=== PATIENT | female | born 1970 | race African-American/Black ===

== ENCOUNTER 2022-08-22 15:28 | Emergency (ER) | payer SELFPAY ==
[2022-08-22 15:54] LABS: Urine Blood Negative (Negative); Urine Glucose Negative (Negative); Urine Protein Negative (Negative); Urine Specific Gravity <=1.005 (1.005-1.030); Urine pH 6.5 (5.0-7.0)
[2022-08-22] MEDS ORDERED: KETOROLAC 30 MG/ML INJ ONE (16:05)
[2022-08-22] MEDS ORDERED: NA CHLORIDE 0.9% 1,000 ML ONE (16:05)
[2022-08-22] MEDS ORDERED: ONDANSETRON 4 MG/2 ML VIAL ONE (16:05)
[2022-08-22 16:26] LABS: Urine Bacteria <20 /HPF (<20); Urine RBC None Seen /HPF (None Seen)
[2022-08-22 16:30] LABS: Albumin 3.2 g/dL (3.4-5.0); Bilirubin Total 0.5 mg/dL (0.2-1.0); Potassium 3.4 mmol/L (3.5-5.1); Protein, Total 7.7 g/dL (6.4-8.2)
[2022-08-22 16:40] LABS: Lymphocytes % 25.6 % (15.3-44.8); MCV 89.3 fL (80-100); MPV 7.7 fL (7.6-11.3); RBC Red Blood Cell Count 3.81 M/uL (3.86-4.86)
--- NOTE | 2022-08-22 17:02 | RAD REPORT ---
EXAM DESCRIPTION: CTAbdomen Pelvis W Contrast - 08/22/2022 4:53 pm CLINICAL HISTORY: Abdominal pain. ABD PAIN COMPARISON: No comparisons TECHNIQUE: Biphasic CT imaging of the abdomen and pelvis was performed with 100 ml non-ionic IV cont rast. All CT scans are performed using dose optimization technique as appropriate and may include automated exposure control or mA/KV adjustment according to patient size. FINDINGS: The lung bases are clear. There are numerous small subtle low-density lesions noted diffusely throughout the liver. Cholecystec tavo. The spleen, pancreas, adrenal glands and kidneys are within normal limits. No bowel obstruction, free air, free fluid or abscess. There is 5-6 cm length of the sigmoid colon le ft lower quadrant which shows wall thickening and mild surrounding inflammation. The appendix is norm al. No evidence of significant lymphadenopathy. No suspicious bony findings. IMPRESSION: 5-6 cm length of sigmoid colon in the left lower quadrant demonstrates several diverticu la, wall thickening and pericolonic inflammation. Diverticulitis is a possibility, however inflammato ry mass can have a similar appearance. Followup colonoscopy would be advised. Numerous small low-density hepatic lesions difficult to fully assess. Small benign lesions with possi ble, however metastatic disease is also possible. Recommend MRI liver protocol with contrast for foll owup assessment. This may be performed non-emergently.
--- NOTE | 2022-08-22 17:09 | EDPHYS ---
Physician Documentation [facility] Name: Gilma Vaughn Age: 52 yrs Sex: Female : 1970 Arrival Date: 08/22/2022 Time: 15:30 Bed 10 Private MD: ED Physician Howard Flynn HPI: 08/22 16:00 This 52 yrs old Female presents to ER via Ambulatory with complaints of Abdominal Pain. kb 16:00 The patient presents with abdominal pain in the lower abdomen. Onset: The kb symptoms/episode began/occurred 4 day(s) ago. The symptoms do not radiate. Associated signs and symptoms: Pertinent positives: nausea, Pertinent negatives: fever, vomiting. The symptoms are described as constant. Modifying factors: The symptoms are alleviated by nothing, the symptoms are aggravated by pressure. Severity of pain: At its worst the pain was moderate in the emergency department the pain is unchanged. The patient has not experienced similar symptoms in the past. The patient has not recently seen a physician. Patient is a 52-year-old female with a history of hypertension that presents for lower abdominal pain that started 4 days ago. States she thought it could be related to constipation so she took laxatives that resulted in bowel movements but pain persisted. Reports nausea today no vomiting denies fever. Denies any urinary symptoms.. 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 - Social history:: Smoking status: Patient denies any tobacco usage or history of. Patient/guardian denies using alcohol. ROS: 16:01 Constitutional: Negative for fever, chills, and weight loss. kb 16:01 Abdomen/GI: Positive for abdominal pain, nausea. 16:01 All other systems are negative. Exam: 16:01 Constitutional: This is a well developed, well nourished patient who is awake, alert, kb and in no acute distress. Head/Face: Normocephalic, atraumatic. ENT: Moist Mucous membranes Cardiovascular: Regular rate and rhythm with a normal S1 and S2. No gallops, murmurs, or rubs. No pulse deficits. Respiratory: Respirations even and unlabored. No increased work of breathing. Talking in full sentences Skin: Warm, dry with normal turgor. Normal color. MS/ Extremity: Pulses equal, no cyanosis. Neurovascular intact. Full, normal range of motion. Neuro: Awake and alert, GCS 15, oriented to person, place, time, and situation. Moves all extremities. Normal gait. Psych: Awake, alert, with orientation to person, place and time. Behavior, mood, and affect are within normal limits. 16:01 Abdomen/GI: Inspection: abdomen appears normal, Bowel sounds: normal, Palpation: soft, in all quadrants, mild abdominal tenderness, in the left upper quadrant and right lower quadrant, moderate abdominal tenderness, in the left lower quadrant. Vital Signs: 15:38 BP 147 / 96; Pulse 71; Resp 18; Temp 97.9(O); Pulse Ox 100% on R/A; Weight 69.85 kg; ld1 Height 5 ft. 4 in. (162.56 cm); Pain 8/10; 16:19 BP 163 / 93; Pulse 67; Resp 15; Pulse Ox 100% ; Pain 8/10; jl7 15:38 Body Mass Index 26.43 (69.85 kg, 162.56 cm) ld1 MDM: 15:39 Patient medically screened. kb 16:02 Differential diagnosis: diverticulitis, gastritis, non-specific abd pain, urinary tract kb infection, ovarian cyst. Data reviewed: vital signs, nurses notes. 17:07 Counseling: I had a detailed discussion with the patient and/or guardian regarding: the kb historical points, exam findings, and any diagnostic results supporting the discharge/admit diagnosis, lab results, radiology results, the need for outpatient follow up, a family practitioner, a aircraft mechanic electrical and radio, to return to the emergency department if symptoms worsen or persist or if there are any questions or concerns that arise at home. ED course: Diagnostic results discussed with pt including need for follow up with GI for colonoscopy and liver MRI. Printed copy of results given to pt. All questions answered. Will prescribe antibiotics for possible diverticulitis and pt will call GI tomorrow to schedule follow up appt. . 08/22 15:39 Order name: CBC with Diff; Complete Time: 16:48 kb 08/22 15:39 Order name: CMP; Complete Time: 16:32 kb 08/22 15:39 Order name: Lipase; Complete Time: 16:32 kb 08/22 15:39 Order name: Urine Microscopic Only; Complete Time: 16:32 kb 08/22 15:39 Order name: CT Abd/Pelvis - IV Contrast Only; Complete Time: 17:03 kb 08/22 15:54 Order name: Urine Dipstick-Ancillary; Complete Time: 16:00 EDMS 08/22 15:39 Order name: IV Saline Lock; Complete Time: 16:07 kb 08/22 15:39 Order name: Labs collected and sent; Complete Time: 16:08 kb 08/22 15:39 Order name: Urine Dipstick-Ancillary (obtain specimen); Complete Time: 16:08 kb Administered Medications: 16:21 Drug: NS 0.9% 1000 ml Route: IV; Rate: 1 bolus; Site: left antecubital; jl7 18:21 Follow up: Response: No adverse reaction; IV Status: Completed infusion jl7 16:21 Drug: TORadol - (ketorolac) 15 mg Route: IVP; Site: left antecubital; jl7 17:00 Follow up: Response: No adverse reaction; Pain is decreased jl7 16:21 Drug: Zofran (Ondansetron) 4 mg Route: IVP; Site: left antecubital; jl7 18:21 Follow up: Response: No adverse reaction jl7 Disposition Summary: 08/22/22 17:09 Discharge Ordered Location: Home kb Condition: Stable kb Diagnosis - Diverticulitis of intestine, part unspecified, without perforation or abscess kb without bleeding Followup: kb - With: Emergency Department - When: As needed - Reason: Worsening of condition Followup: kb - With: Private Physician - When: 2 - 3 days - Reason: Recheck today's complaints, Continuance of care, Re-evaluation by your physician Discharge Instructions: - Discharge Summary Sheet kb - Diverticulitis, [id number] kb Forms: - Medication Reconciliation Form kb - Thank You Letter kb - Antibiotic Education kb - Prescription Opioid Use kb Prescriptions: - Flagyl 500 mg Oral Tablet - take 1 tablet by ORAL route every 8 hours for 10 days; 30 tablet; Refills: 0, kb Product Selection Permitted - Zofran 4 mg Oral Tablet - take 1 tablet by ORAL route every 6 hours As needed; 20 tablet; Refills: 0, kb Product Selection Permitted - Cipro 500 mg Oral Tablet - take 1 tablet by ORAL route every 12 hours for 10 days; 20 tablet; Refills: 0, kb Product Selection Permitted - Diclofenac Sodium 75 mg Oral tablet,delayed release (DR/EC) - take 1 tablet by ORAL route 2 times per day As needed; 30 tablet; Refills: 0, kb Product Selection Permitted Signatures: Dispatcher [employer] EDIra Carranza, NICOLEC Yanique Myles, RN RN jl7 Sofiya Casillas RN RN ld1
--- NOTE | 2022-08-22 17:09 | ER ---
Nurse's Notes [facility] Name: Gilma Vaughn Age: 52 yrs Sex: Female : 1970 Arrival Date: 08/22/2022 Time: 15:30 Bed 10 Private MD: Diagnosis: Diverticulitis of intestine, part unspecified, without perforation or abscess without bleeding Presentation: 08/22 15:36 Chief complaint: Patient states: ABD pain X 2-3 days. Nausea. Coronavirus screen: At ld1 this time, the client does not indicate any symptoms associated with coronavirus-19. Ebola Screen: No symptoms or risks identified at this time. Risk Assessment: Do you want to hurt yourself or someone else? Patient reports no desire to harm self or others. Onset of symptoms was August 22, 2022. 15:36 Method Of Arrival: Ambulatory ld1 15:36 Acuity: HOWARD 3 ld1 16:00 Initial Sepsis Screen: Does the patient meet any 2 criteria? No. Patient's initial jl7 sepsis screen is negative. Does the patient have a suspected source of infection? No. Patient's initial sepsis screen is negative. Triage Assessment: 15:38 General: Appears in no apparent distress. comfortable, Behavior is calm, cooperative, ld1 appropriate for age. Pain: Complains of pain in abdomen Pain does not radiate. Pain currently is 8 out of 10 on a pain scale. Quality of pain is described as throbbing, Pain began 2-3 days ago. Is continuous. EENT: No signs and/or symptoms were reported regarding the EENT system. Neuro: Level of Consciousness is awake, alert, obeys commands, Oriented to person, place, time, situation. Cardiovascular: Capillary refill < 3 seconds Patient's skin is warm and dry. Respiratory: Airway is patent Respiratory effort is even, unlabored. GI: Abdomen is round non-distended, Reports lower abdominal pain, nausea. : No signs and/or symptoms were reported regarding the genitourinary system. Derm: No signs and/or symptoms reported regarding the dermatologic system. Musculoskeletal: No signs and/or symptoms reported regarding the musculoskeletal system. 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 - Social history:: Smoking status: Patient denies any tobacco usage or history of. Patient/guardian denies using alcohol. Screenin:19 [facility] ED Fall Risk Assessment (Adult) History of falling in the last 3 months, jl7 including since admission No falls in past 3 months (0 pts) Confusion or Disorientation No (0 pts) Intoxicated or Sedated No (0 pts) Impaired Gait No (0 pts) Mobility Assist Device Used No (0 pt) Altered Elimination No (0 pt) Score/Fall Risk Level 0 - 2 = Low Risk Oriented to surroundings, Maintained a safe environment. Abuse screen: Denies threats or abuse. Denies injuries from another. Nutritional screening: No deficits noted. Tuberculosis screening: No symptoms or risk factors identified. Assessment: 16:19 General: Appears in no apparent distress. uncomfortable, Behavior is calm, cooperative, jl7 appropriate for age. Pain: Complains of pain in left lower quadrant Pain currently is 8 out of 10 on a pain scale. Neuro: Level of Consciousness is awake, alert, obeys commands, Oriented to person, place, time, situation. Cardiovascular: Patient's skin is warm and dry. Respiratory: Airway is patent Respiratory effort is even, unlabored, Respiratory pattern is regular, symmetrical. GI: Reports nausea. Derm: Skin is pink, warm \T\ dry. 17:30 Reassessment: Patient appears in no apparent distress at this time. Patient and/or jl7 family updated on plan of care and expected duration. Pain level reassessed. Patient is alert, oriented x 3, equal unlabored respirations, skin warm/dry/pink. Patient states feeling better. Vital Signs: 15:38 BP 147 / 96; Pulse 71; Resp 18; Temp 97.9(O); Pulse Ox 100% on R/A; Weight 69.85 kg; ld1 Height 5 ft. 4 in. (162.56 cm); Pain 8/10; 16:19 BP 163 / 93; Pulse 67; Resp 15; Pulse Ox 100% ; Pain 8/10; jl7 15:38 Body Mass Index 26.43 (69.85 kg, 162.56 cm) ld1 ED Course: 15:30 Patient arrived in ED. as 15:34 [facility]ear[facility]-C [facility] kb 15:34 Howard Flynn MD is Attending Physician. kb 15:37 Triage completed. ld1 15:38 Arm band placed on right wrist. ld1 15:54 Urine collected: clean catch specimen, clear. jl7 15:59 Yanique Ybarra, RN is Primary Nurse. jl7 16:08 Urine Microscopic Only Sent. kj1 16:19 Patient has correct armband on for positive identification. jl7 16:19 Initial lab(s) drawn, by ED staff, sent to lab. Inserted saline lock: 20 gauge in left jl7 antecubital area, using aseptic technique. Blood collected. 16:55 CT Abd/Pelvis - IV Contrast Only In Process Unspecified. EDMS 18:23 No provider procedures requiring assistance completed. IV discontinued, intact, jl7 bleeding controlled, No redness/swelling at site. Pressure dressing applied. Administered Medications: 16:21 Drug: NS 0.9% 1000 ml Route: IV; Rate: 1 bolus; Site: left antecubital; jl7 18:21 Follow up: Response: No adverse reaction; IV Status: Completed infusion jl7 16:21 Drug: TORadol - (ketorolac) 15 mg Route: IVP; Site: left antecubital; jl7 17:00 Follow up: Response: No adverse reaction; Pain is decreased jl7 16:21 Drug: Zofran (Ondansetron) 4 mg Route: IVP; Site: left antecubital; jl7 18:21 Follow up: Response: No adverse reaction jl7 Medication: 16:19 VIS not applicable for this client. jl7 Outcome: 17:09 Discharge ordered by . kb 17:30 Discharged to home ambulatory. jl7 17:30 Condition: stable 17:30 Discharge instructions given to patient, Instructed on discharge instructions, follow up and referral plans. medication usage, Demonstrated understanding of instructions, follow-up care, medications, Prescriptions given X 4. 18:24 Patient left the ED. jl7 Signatures: Dispatcher [employer] Ira Henry, OPEN END SPINNING OPERATOR-C OPEN END SPINNING OPERATOR-Gila Briscoe Jahala, RN RN jl7 Karen Kearns1 Sofiya Casillas, RN RN ld1
[2022-08-22 19:32] VITALS: TEMP 97.9; O2SAT 100
[2022-08-22 19:33] VITALS: BP 163/93
== END 2022-08-22 18:24 | disposition home or self-care (01) ==
LOC: ER 15:28
DX: K57.32 Diverticulitis of large intestine without perforation or abscess without bleeding (principal); I10 Essential (primary) hypertension; Z98.82 Breast implant status
CPT/HCPCS: 36415; 74177; 80053; 81003; 81015; 83690; 85025; J2405; J7030; Q9967

== ENCOUNTER 2023-06-05 22:58 | Emergency (ER) | payer SELFPAY ==
[2023-06-05] MEDS ORDERED: ONDANSETRON 4 MG/2 ML VIAL ONE (23:39)
[2023-06-05] MEDS ORDERED: NA CHLORIDE 0.9% 1,000 ML ONE (23:39)
[2023-06-05 23:43] LABS: Absolute Lymphocytes (CBC) 2.1 K/uL (0.7-4.9); Hematocrit 34.1 % (36.0-45.0); Lymphocytes % 36.3 % (15.3-44.8); MCV 88.4 fL (80-100); MPV 8.2 fL (7.6-11.3); Platelets 224 thou/uL (152-406); RBC Red Blood Cell Count 3.85 M/uL (3.86-4.86)
[2023-06-05 23:52] LABS: ALT/SGPT 44 U/L (13-56); AST/SGOT 55 U/L (15-37); Albumin 2.9 g/dL (3.4-5.0); Alkaline Phosphatase 220 U/L (45-117); BUN Blood Urea Nitrogen 4 mg/dL (7-18); Bicarbonate 30 mEq/L (21-32); Bilirubin Direct < 0.1 mg/dL (0-0.2); Bilirubin Indirect, Calculated ND mg/dL (0.2-0.8); Bilirubin Total 0.4 mg/dL (0.2-1.0); Glomerular Filtration Rate 83 ml/min (=/>90); Glucose Level 125 mg/dL (74-106); NT PRO-BNP 245 pg/mL (<125); Potassium 3.2 mEq/L (3.5-5.1); Protein, Total 7.4 g/dL (6.4-8.2); Sodium Level 139 mEq/L (136-145); Troponin High Sensitivity 13.3 pg/mL (<58.9)
--- NOTE | 2023-06-06 01:13 | ER ---
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 Took 2 tizanidine for her back pain and now feels lethargic and is concerned for possible accidental overdose EMS states: Pt took 8mg of her spouses tizanidine for back pain at 2030. States she was sleep within 5 minutes of taking the medication and that her could not wake her for 30 minutes. PMH htn only. Coronavirus screen: Vaccine status: Patient reports being unvaccinated. Ebola Screen: No symptoms or risks identified at this time. Initial Sepsis Screen: Does the patient have a suspected source of infection? No. Patient's initial sepsis screen is negative. Risk Assessment: Do you want to hurt yourself or someone else? Patient reports no desire to harm self or others. Onset of symptoms was June 05, 2023 at 20:30. 23:03 Method Of Arrival: EMS: [facility] la4 23:03 Acuity: HOWARD 3 la4 06/06 02:06 Initial Sepsis Screen: Does the patient meet any 2 criteria? No. Patient's initial nw1 sepsis screen is negative. Triage Assessment: 06/05 23:07 General: Appears in no apparent distress. Behavior is cooperative, appropriate for age, la4 drowsy. Pain: Denies pain. Neuro: No deficits noted. 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 Speech is normal. Cardiovascular: No deficits noted. Heart tones S1 S2 Capillary refill < 3 seconds is brisk Pulses are all present. Edema is absent. Rhythm is regular. Respiratory: No deficits noted. Airway is patent Respiratory effort is even, unlabored, Respiratory pattern is regular, symmetrical, Breath sounds are clear bilaterally. GI: No deficits noted. No signs and/or symptoms were reported involving the gastrointestinal system. : No deficits noted. No signs and/or symptoms were reported regarding the genitourinary system. Derm: No deficits noted. No signs and/or symptoms reported regarding the dermatologic system. Musculoskeletal: No deficits noted. No signs and/or symptoms reported regarding the musculoskeletal system. Circulation, motion, and sensation intact. Capillary refill < 3 seconds, is brisk, Range of motion: intact in all extremities. 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 - Social history:: Smoking status: Patient/guardian denies using tobacco products. - Family history:: not pertinent. Screenin:11 [facility] ED Fall Risk Assessment (Adult) History of falling in the last 3 months, la4 including since admission No falls in past 3 months (0 pts) Confusion or Disorientation No (0 pts) Intoxicated or Sedated Yes (3 pts) Impaired Gait No (0 pts) Mobility Assist Device Used No (0 pt) Altered Elimination No (0 pt) Score/Fall Risk Level 3 or more points = High Risk. Abuse screen: Denies threats or abuse. Denies injuries from another. Nutritional screening: No deficits noted. Tuberculosis screening: No symptoms or risk factors identified. Assessment: 23:11 Reassessment: Patient appears in no apparent distress at this time. Patient and/or la4 family updated on plan of care and expected duration. Pain level reassessed. Patient is alert, oriented x 3, equal unlabored respirations, skin warm/dry/pink. Patient states symptoms have not improved. General: Appears in no apparent distress. Behavior is calm, cooperative, appropriate for age. 06/06 01:20 Reassessment: Pt discharged but just received medication. Will wait 15 min to ensure no nw1 allergic reaction and then will discharge. Vital Signs: 06/05 23:03 BP 139 / 97; Pulse 61; Resp 16; Pulse Ox 100% on R/A; Weight 70.31 kg; Height 5 ft. 4 la4 in. ; Pain 0/10; 23:03 Body Mass Index 26.61 (70.31 kg, 162.56 cm) la4 23:03 Pain Scale: Adult la4 ED Course: 23:03 Patient arrived in ED. la4 23:06 Morales Samaniego MD is Attending Physician. sp4 23:07 Triage completed. la4 23:07 Arm band placed on right wrist. Patient placed in an exam room, on a stretcher, on la4 hospital monitor, on pulse oximetry. 23:11 Gilma Gerber, RN is Primary Nurse. nw1 23:11 Patient has correct armband on for positive identification. Placed in gown. Bed in low la4 position. Call light in reach. Side rails up X2. Provided Education on: plan of care. 23:11 Client placed on continuous cardiac and pulse oximetry monitoring. NIBP monitoring la4 applied. 23:11 No provider procedures requiring assistance completed. Inserted saline lock: 20 gauge la4 in right wrist, using aseptic technique. 06/06 02:06 IV discontinued, intact, bleeding controlled, No redness/swelling at site. Pressure nw1 dressing applied. Administered Medications: 06/05 23:30 Drug: NS 0.9% IV 1000 ml IV at 125 ml/hr continuous Route: IV; Rate: 125 ml/hr; Site: nw1 right wrist; 23:30 Drug: Ondansetron IVP 4 mg IVP once; over 2 minutes Route: IVP; Site: right wrist; nw1 06/06 01:20 Drug: Promethazine PO 25 mg PO once Route: PO; nw1 Medication: 06/05 23:19 VIS not applicable for this client. nw1 Outcome: 06/06 01:13 Discharge ordered by . sp4 02:05 Discharged to home ambulatory, with family, nw1 02:05 Condition: stable 02:05 Discharge instructions given to patient, Instructed on discharge instructions, medication usage, Demonstrated understanding of instructions, medications, Prescriptions given X 1, 02:06 Patient left the ED. nw1 Signatures: Morales Samaniego MD MD spJulio Durand RN RN la4 Gilma Gerber, LUISA RN nw1
--- NOTE | 2023-06-06 01:13 | EDPHYS ---
Physician Documentation [facility] Name: Gilma Vaughn Age: 53 yrs Sex: Female : 1970 Arrival Date: 06/05/2023 Time: 22:58 Bed 17 Private MD: ED Physician Morales Samaniego HPI: 06/05 23:06 This 53 yrs old Black Female presents to ER via Unassigned with complaints of Overdose sp4 of Zanaflex . 23:06 53-year-old female presents with complaint that she took 2 tablets of tizanidine 4 mg sp4 each at 8:30 PM for back pain. Patient's states he had difficult time waking outpatient and so he has called EMS for patient to be brought to the emergency room for evaluation. Patient denied any suicidal attempt . 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 - Social history:: Smoking status: Patient/guardian denies using tobacco products. - Family history:: not pertinent. ROS: 23:55 Constitutional: Negative for fever, chills, and weight loss, positive for somnolence sp4 23:55 All other systems are negative, Exam: 23:55 Constitutional: This is a well developed, well nourished patient who is awake, alert, sp4 and in no acute distress. Head/Face: Normocephalic, atraumatic. Eyes: Pupils equal round and reactive to light, extra-ocular motions intact. Lids and lashes normal. Conjunctiva and sclera are not injected. Cornea within normal limits. Periorbital areas with no swelling, redness, or edema. ENT: Nares patent. No nasal discharge, no septal abnormalities noted. Tympanic membranes are normal and external auditory canals are clear. Oropharynx with no redness, swelling, or masses, exudates, or evidence of obstruction, uvula midline. Mucous membranes moist. Neck: Trachea midline, no thyromegaly or masses palpated, and no cervical lymphadenopathy. Supple, full range of motion without nuchal rigidity, or vertebral point tenderness. Chest/axilla: Normal chest wall appearance and motion. Nontender with no deformity. No lesions are appreciated. Cardiovascular: Regular rate and rhythm with a normal S1 and S2. No gallops, murmurs, or rubs. Normal PMI, no JVD. No pulse deficits. Respiratory: Lungs have equal breath sounds bilaterally, clear to auscultation and percussion. No rales, rhonchi or wheezes noted. No increased work of breathing, no retractions or nasal flaring. Abdomen/GI: Soft, non-tender, with normal bowel sounds. No distension or tympany. No guarding or rebound. No evidence of tenderness throughout. Back: No spinal tenderness. No costovertebral tenderness. Skin: Warm, dry with normal turgor. Normal color with no rashes, no lesions, and no evidence of cellulitis. MS/ Extremity: Pulses equal, no cyanosis. Neurovascular intact. Full, normal range of motion. Neuro: Awake and alert, GCS 15, oriented to person, place, time, and situation. Cranial nerves II-XII grossly intact. Motor strength 5/5 in all extremities. Sensory grossly intact. Psych: Awake, alert, with orientation to person, place and time. Behavior, mood, and affect are within normal limits Vital Signs: 23:03 BP 139 / 97; Pulse 61; Resp 16; Pulse Ox 100% on R/A; Weight 70.31 kg; Height 5 ft. 4 la4 in. ; Pain 0/10; 23:03 Body Mass Index 26.61 (70.31 kg, 162.56 cm) la4 23:03 Pain Scale: Adult la4 MDM: 23:08 Patient medically screened. sp4 06/06 01:11 Differential Diagnosis altered mental status, sepsis, flu. Data reviewed: vital signs, sp4 nurses notes. Data reviewed: lab test result(s), CBC, electrolytes, hepatic panel. Consideration of Admission/Observation Escalation of care including admission/observation considered. ED course: Patient is feeling much better after observation labs did not raise any concern, patient will be prescribed Robaxin as needed as needed back pain. ED course: Stable for discharge home at this time. 06/05 23:08 Order name: Basic Metabolic Panel; Complete Time: 01:07 sp4 06/05 23:08 Order name: CBC with Diff; Complete Time: 01:07 sp4 06/05 23:08 Order name: LFT's; Complete Time: 01:07 sp4 06/05 23:08 Order name: NT PRO-BNP; Complete Time: 01:07 sp4 06/05 23:08 Order name: Troponin HS; Complete Time: 01:07 sp4 06/05 23:08 Order name: EKG; Complete Time: 23:08 sp4 06/05 23:08 Order name: Cardiac monitoring; Complete Time: 23:14 sp4 06/05 23:08 Order name: EKG - Nurse/Tech; Complete Time: 23:14 sp4 06/05 23:08 Order name: IV Saline Lock; Complete Time: 23:14 sp4 06/05 23:08 Order name: Labs collected and sent; Complete Time: 23:14 sp4 06/05 23:08 Order name: O2 Per Protocol; Complete Time: 23:14 sp4 06/05 23:08 Order name: O2 Sat Monitoring; Complete Time: 23:14 sp4 Administered Medications: 06/05 23:30 Drug: NS 0.9% IV 1000 ml IV at 125 ml/hr continuous Route: IV; Rate: 125 ml/hr; Site: nw right wrist; 23:30 Drug: Ondansetron IVP 4 mg IVP once; over 2 minutes Route: IVP; Site: right wrist; nw1 06/06 01:20 Drug: Promethazine PO 25 mg PO once Route: PO; [facility] Disposition Summary: 06/06/23 01:13 Discharge Ordered Notes: Location: Home sp4 Problem: new sp4 Symptoms: have improved sp4 Condition: Stable sp4 Diagnosis - Low back pain sp4 - Accidental overdose on Zanaflex /tizanidine sp4 Followup: sp4 - With: Private Physician - When: 7 - 10 days - Reason: Recheck today's complaints Discharge Instructions: - Discharge Summary Sheet sp4 - Acute Back Pain, Adult sp4 Forms: - Patient Portal Instructions sp4 Prescriptions: - methocarbamol 750 mg Oral tablet - take 1 tablet ORAL route every 6 hours PRN back pain; 30 tablet; Refills: 0, sp4 Product Selection Permitted Signatures: Dispatcher [employer] Morales Cruz MD MD sp4 Julio Whyte RN RN la4 Gilma Gerber RN RN nw1
[2023-06-06] MEDS ORDERED: PROMETHAZINE 25 MG TABLET ONE (01:26)
[2023-06-06 02:12] VITALS: BP 139/97; O2SAT 100
== END 2023-06-06 02:06 | disposition home or self-care (01) ==
LOC: ER 22:58
DX: M54.50 Low back pain, unspecified (principal); T42.8X1A Poisoning by antiparkinsonism drugs and other central muscle-tone depressants, accidental (unintentional), initial encounter; R40.0 Somnolence
CPT/HCPCS: 36415; 80048; 80076; 83880; 84484; 85025; 96374; 99284; J2405; J7030; Q0169

== ENCOUNTER → 2023-09-02 | Emergency (ER) | payer SELFPAY ==
[~2023-09-02] MED LIST: NA CHLORIDE 0.9% 1,000 ML ONE; POTASSIUM CL SA 10 MEQ TAB PO ONE
--- OUTSIDE RECORDS SUMMARY | 2023-09-02 15:17 | XMS REPORT | Clinical Summary ---
Author Name Unknown Organization [facility] Address [address] [place] [address] Care Team Providers Care Oil Dispatcher Name Role Phone Radha Jj MD Unavailable [phone] Radha Jj MD Unavailable [phone] Manisha Yang MD Unavailable Shirley Kearns NP Unavailable [phone] Dev Coates MD Unavailable Judson Patton MD Unavailable [phone] Nik Peck MD Unavailable Allergies No known active allergies Medications Medication Sig Dispensed Refills Start Date End Date Status amLODIPine (NORVASC) 5 mg tablet Take 5 mg by mouth daily. 0 Active losartan-hydrochlor othiazide (HYZAAR) 100-25 mg per tablet Take by mouth daily. 0 Active pregabalin (Lyrica) 50 mg capsuleIndications: Other inflammatory polyneuropathy,Neur osarcoidosis Start at 1 cap three times a day x 2 days and increase to 2 caps three times a day if still having nerve pain. 180 capsule 5 08/23/2020 Active Additional Information Patient taking differently: 50 mg Daily, Start at 1 cap three times a day x 2 days and increase to 2 caps three times a day if still having nerve pain., Reason: Per patient request, Reported on 10/22/2020 UNABLE TO FINDIndications:gail n Take 600 mg by mouth 3 (three) times a day. Med Name: Naflon 0 Active predniSONE (DELTASONE) 10 mg tabletIndications:N eurosarcoidosis Take 6 tabs daily x 1 week, then 5 tabs daily x 1 week, then 4 tabs daily x 1 wk, then 3 tabs daily for 1 wk, then 2 tabs daily x 1 week, then 1 tab daily x 1 week, then stop 147 tablet 0 09/21/2020 Active Additional Information Patient taking differently: 30 mg Daily, Take 6 tabs daily x 1 week, then 5 tabs daily x 1 week, then 4 tabs daily x 1 wk, then 3 tabs daily for 1 wk, then 2 tabs daily x 1 week, then 1 tab daily x 1 week, then stop, Reason: Per patient request (tapering dose), Reported on 10/22/2020 Active Problems Problem Noted Date Diagnosed Date Entrapment of right ulnar nerve 08/05/2020 Lumbosacral radiculopathy 06/30/2020 Inflammatory polyneuropathy 06/30/2020 Lumbago 03/25/2016 Muscular wasting and disuse atrophy, 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 Hypertension Surgical History Surgery Date Site/Laterality Comments HYSTERECTOMY GALLBLADDER SURGERY GASTRIC BYPASS Medical History Medical History Date Comments Hypertension Social History Tobacco Use Types Packs/Day Years Used Date Smoking Tobacco: Never Smokeless Tobacco: Never Tobacco Cessation:Counseling Given: No Alcohol Use Standard Drinks/Week Comments Not Asked 3 (1 standard drink = 0.6 oz pur e alcohol) Sex and Gender Information Value Date Recorded Sex 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 Gender Identity Female 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 Sexual Orientation Not on file Job Start Date Occupation Industry Not on file Not on file Not on file Obstetrics History Plan of Treatment Health Maintenance Due Date Last Done Comments COVID-19 Vaccination ( season) 2023 05/14/2021, 04/16/2021 Advance Directives Latest Code Status on File Code Status Date Activated Date Inactivated Comments Full Code 06/30/2020 7:14 PM 07/04/2020 5:51 PM Care Teams Oil Dispatcher Relationship Specialty Start Date End Date Radha Jj MD PCP - External Referring Obstetrics/Gynecology 12/11/17 Radha Jj MD PCP - External Follow Up A Obstetrics/Gynecology 12/11/17 Manisha Yang MD [address] [place] [address] [address] [place] [address] PCP - External Follow Up B Plastic and Reconstructive Surgery 12/30/18 Shirley Kearns NP [address] [place] [address] PCP - External Follow Up C Nurse Practitioner 05/27/21 Dev Coates MD [facility] [place] [address] Consulting Physician Rheumatology 09/14/20 Judson Patton MD [facility] [place] [address] Physician Neurosurgery 03/06/16 Nik Peck MD [address] [place] [address] Consulting Physician Pain Management 03/21/16
[2023-09-02 16:19] LABS: Absolute Lymphocytes (CBC) 1.7 K/uL (0.7-4.9); Hematocrit 35.4 % (36.0-45.0); Lymphocytes % 19.3 % (15.3-44.8); MCV 87.7 fL (80-100); MPV 7.9 fL (7.6-11.3); Platelets 250 thou/uL (152-406); RBC Red Blood Cell Count 4.04 M/uL (3.86-4.86)
[2023-09-02 16:33] LABS: Bilirubin Total 0.7 mg/dL (0.2-1.0); Potassium 3.2 mEq/L (3.5-5.1); Protein, Total 8.3 g/dL (6.4-8.2)
--- NOTE | 2023-09-02 17:22 | EDPHYS ---
Physician Documentation [facility] Name: Gilma Vaughn Age: 53 yrs Sex: Female : 1970 Arrival Date: 09/02/2023 Time: 15:15 Bed 10 Private MD: ED Physician Collins Mckee HPI: 09/02 15:42 This 53 yrs old Black Female presents to ER via Ambulatory with complaints of Headache, kb Body cramps. 15:42 Patient is a 53-year-old female who presents for headache, muscle cramps and dry mouth kb for 2 weeks. States she feels really dehydrated so she came in to get her blood work checked and get some fluids. Denies nausea, vomiting, diarrhea, urinary symptoms.. 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 - Social history:: Smoking status: Patient denies any tobacco usage or history of. ROS: 15:38 Constitutional: Negative for fever, chills, and weight loss, kb 15:38 MS/extremity: Positive for muscle cramps, 15:38 Neuro: Positive for headache, 15:38 All other systems are negative, Exam: 15:38 Constitutional: This is a well developed, well nourished patient who is awake, alert, kb and in no acute distress. Head/Face: Normocephalic, atraumatic. ENT: Moist Mucous membranes Cardiovascular: Regular rate Respiratory: Respirations even and unlabored. No increased work of breathing. Talking in full sentences Skin: Warm, dry with normal turgor. Normal color. MS/ Extremity: Pulses equal, no cyanosis. Neurovascular intact. Full, normal range of motion. Neuro: Awake and alert, GCS 15, oriented to person, place, time, and situation. Moves all extremities. Normal gait. Vital Signs: 15:21 BP 134 / 90; Pulse 88; Resp 16; Temp 97.3; Pulse Ox 100% on R/A; ko1 17:34 BP 127 / 85; Pulse 78; Resp 16; Pulse Ox 100% ; bp [place] Coma Score: 15:38 Eye Response: spontaneous(4). Motor Response: obeys commands(6). Verbal Response: kb oriented(5). Total: 15. MDM: 15:21 Patient medically screened. kb 15:38 Data reviewed: vital signs, nurses notes. kb 15:43 Differential Diagnosis Dehydration, abnormal electrolytes. kb 17:19 Counseling: I had a detailed discussion with the patient and/or guardian regarding the kb historical points, exam findings, and any diagnostic results supporting the discharge/admit diagnosis, lab results, the need for outpatient follow up, a family practitioner, to return to the emergency department if symptoms worsen or persist or if there are any questions or concerns that arise at home. 09/02 15:28 Order name: CBC with Diff; Complete Time: 16:38 kb 09/02 15:28 Order name: CMP; Complete Time: 16:37 kb 09/02 15:28 Order name: IV Start; Complete Time: 16:08 kb Administered Medications: 16:00 Drug: NS 0.9% IV 1000 ml IV at 1000 ml once Route: IV; Rate: 1000 ml; Site: left bp antecubital; 17:36 Follow up: IV Status: Completed infusion; IV Intake: 1000ml bp 16:45 Drug: Potassium Chloride PO 40 mEq PO once Route: PO; bp 17:36 Follow up: Response: No adverse reaction bp Disposition: 18:33 Co-signature as Attending Physician, Collins Mckee MD I reviewed the patient's care rt provided by the Advanced Practice Provider and agree with the diagnosis and treatment plan. Disposition Summary: 09/02/23 17:22 Discharge Ordered Notes: Location: Home kb Condition: Stable kb Diagnosis - Headache kb - Cramp and spasm kb - Hypokalemia kb Followup: kb - With: Emergency Department - When: As needed - Reason: Worsening of condition Followup: kb - With: Private Physician - When: 2 - 3 days - Reason: Recheck today's complaints, Continuance of care, Re-evaluation by your physician Discharge Instructions: - Discharge Summary Sheet kb - Muscle Cramps and Spasms, [id number] kb - General Headache Without Cause, [id number] kb Forms: - Medication Reconciliation Form kb - Thank You Letter kb - Antibiotic Education kb - Prescription Opioid Use kb - Patient Portal Instructions kb - Leadership Thank You Letter kb Signatures: Dispatcher [employer] Ira Henry FNP-C FNP-Jason Hidalgo, RN RN bp Umm Bradley RN RN ko1 Collins Mckee MD MD rt
--- NOTE | 2023-09-02 17:22 | ER ---
Nurse's Notes [facility] Name: Gilma Vaughn Age: 53 yrs Sex: Female : 1970 Arrival Date: 09/02/2023 Time: 15:15 Bed 10 Private MD: Diagnosis: Headache;Cramp and spasm;Hypokalemia Presentation: 09/02 15:21 Chief complaint: Patient states: head pressure, feet cramping and turning in, lips are ko1 very dry. Going on for about 2 weeks. Coronavirus screen: At this time, the client does not indicate any symptoms associated with coronavirus-19. Ebola Screen: No symptoms or risks identified at this time. Initial Sepsis Screen: Does the patient meet any 2 criteria? No. Patient's initial sepsis screen is negative. Does the patient have a suspected source of infection? No. Patient's initial sepsis screen is negative. Risk Assessment: Do you want to hurt yourself or someone else? Patient reports no desire to harm self or others. Onset of symptoms is unknown. 15:21 Method Of Arrival: Ambulatory ko1 15:21 Acuity: HOWARD 4 ko1 Triage Assessment: 15:26 Headache History: Denies prior headaches. General: Appears in no apparent distress. ko1 Behavior is calm, cooperative, appropriate for age. Pain: Pain currently is 3 out of 10 on a pain scale. Pain began gradually, Also complains of no other associated symptoms. Neuro: No deficits noted. 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 - Social history:: Smoking status: Patient denies any tobacco usage or history of. Screenin:34 [facility] ED Fall Risk Assessment (Adult) History of falling in the last 3 months, bp including since admission No falls in past 3 months (0 pts). Abuse screen: Denies threats or abuse. Denies injuries from another. Nutritional screening: No deficits noted. Tuberculosis screening: No symptoms or risk factors identified. Assessment: 15:30 General: SEE TRIAGE NOTE. bp 17:34 Reassessment: PT DC HOME AMBULATORY. bp Vital Signs: 15:21 BP 134 / 90; Pulse 88; Resp 16; Temp 97.3; Pulse Ox 100% on R/A; ko1 17:34 BP 127 / 85; Pulse 78; Resp 16; Pulse Ox 100% ; bp [place] Coma Score: 15:38 Eye Response: spontaneous(4). Motor Response: obeys commands(6). Verbal Response: kb oriented(5). Total: 15. ED Course: 15:19 Patient arrived in ED. im 15:20 [facility]C [facility] kb 15:20 Collins Mckee MD is Attending Physician. kb 15:26 Triage completed. ko1 15:26 Arm band placed on right wrist. Patient placed in waiting room, Patient notified of ko1 wait time. 15:55 Jason Casey, RN is Primary Nurse. bp 16:08 Inserted saline lock: 22 gauge in left antecubital area, using aseptic technique. Blood ds4 collected. Missed attempt(s): 22 gauge in left antecubital area. Bleeding controlled, band aid applied, catheter tip intact. 17:34 Patient has correct armband on for positive identification. bp 17:34 No provider procedures requiring assistance completed. IV discontinued, intact, bp bleeding controlled, No redness/swelling at site. Pressure dressing applied. Administered Medications: 16:00 Drug: NS 0.9% IV 1000 ml IV at 1000 ml once Route: IV; Rate: 1000 ml; Site: left bp antecubital; 17:36 Follow up: IV Status: Completed infusion; IV Intake: 1000ml bp 16:45 Drug: Potassium Chloride PO 40 mEq PO once Route: PO; bp 17:36 Follow up: Response: No adverse reaction bp Medication: 17:34 VIS not applicable for this client. bp Intake: 17:36 IV: 1000ml; Total: 1000ml. bp Outcome: 17:22 Discharge ordered by . kb 17:34 Discharged to home ambulatory, bp 17:34 Condition: stable 17:34 Discharge instructions given to patient, Instructed on discharge instructions, follow up and referral plans. Demonstrated understanding of instructions, follow-up care, 18:02 Patient left the ED. bp Signatures: Ira Kearns, GASATERIA ATTENDANT-C GASATERIA ATTENDANT-Ckb Jean Claude Galvin ds4 Jason Casey, RN RN bp Umm Bradley, LUISA RN ko1 Maribel Maciel
[2023-09-02 18:26] VITALS: BP 127/85; TEMP 97.3; O2SAT 100
== END ==
LOC: ER 15:15
DX: R51.9 Headache, unspecified (principal); R25.2 Cramp and spasm; E87.6 Hypokalemia
CPT/HCPCS: 36415; 80053; 85025; J7030

== ENCOUNTER → 2023-09-04 | Emergency (ER) | payer SELFPAY ==
[~2023-09-04] MED LIST changes: +DOXYCYCLINE 100 MG CAP PO ONE; +HYDROCODONE/APAP 5/325 MG TAB ONE; -NA CHLORIDE 0.9% 1,000 ML ONE; -POTASSIUM CL SA 10 MEQ TAB PO ONE
--- OUTSIDE RECORDS SUMMARY | 2023-09-04 07:42 | XMS REPORT | Clinical Summary ---
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 Sexual Orientation Not on file Job Start Date Occupation Industry Not on file Not on file Not on file Obstetrics History Plan of Treatment Health Maintenance Due Date Last Done Comments COVID-19 Vaccination ( season) 2023 05/14/2021, 04/16/2021 Advance Directives Latest Code Status on File Code Status Date Activated Date Inactivated Comments Full Code 06/30/2020 7:14 PM 07/04/2020 5:51 PM Care Teams Field Producer Relationship Specialty Start Date End Date Radha Jj MD PCP - External Referring Obstetrics/Gynecology 12/11/17 Radha Jj MD PCP - External Follow Up A Obstetrics/Gynecology 12/11/17 Manisha Yang MD [address] [place] [address] [address] [place] [address] PCP - External Follow Up B Plastic and Reconstructive Surgery 12/30/18 Shirley Kearns NP [address] [place] [address] PCP - External Follow Up C Nurse Practitioner 05/27/21 Dev Coates MD [facility] [place] [address] Consulting Physician Rheumatology 09/14/20 Judson Patton MD [facility] [place] [address] Physician Neurosurgery 03/06/16 Nik Peck MD [address] [place] [address] Consulting Physician Pain Management 03/21/16
[2023-09-04 09:21] LABS: Urine Bacteria None Seen /HPF (<20); Urine Bilirubin NEGATIVE (Negative); Urine Blood 3+ (Negative); Urine Clarity Turbid (Clear); Urine Color Light-Yellow (Yellow); Urine Glucose NEGATIVE (Negative); Urine Mucus Slight /HPF (None Seen); Urine Protein NEGATIVE (Negative); Urine RBC <5 /HPF (None Seen); Urine Urobilinogen 1+ (Normal); Urine pH 7.5 (5.0-7.0)
--- NOTE | 2023-09-04 09:50 | ER ---
Nurse's Notes [facility] Name: Gilma Vaughn Age: 53 yrs Sex: Female : 1970 Arrival Date: 09/04/2023 Time: 07:40 Bed 7 Private MD: Diagnosis: Labial Cellulitis Presentation: 09/04 07:52 Chief complaint: Patient states: Vaginal swelling X 2 days, denies pain. C/O soreness ld1 and bleeding. Coronavirus screen: Client presents with at least one sign or symptom that may indicate coronavirus-19. Ebola Screen: No symptoms or risks identified at this time. Initial Sepsis Screen: Does the patient meet any 2 criteria? No. Patient's initial sepsis screen is negative. Does the patient have a suspected source of infection? No. Patient's initial sepsis screen is negative. Risk Assessment: Do you want to hurt yourself or someone else? Patient reports no desire to harm self or others. Onset of symptoms was September 04, 2023. 07:52 Method Of Arrival: Ambulatory ld1 07:52 Acuity: HOWARD 4 ld1 Triage Assessment: 07:52 General: Appears in no apparent distress. comfortable, Behavior is calm, cooperative, ld1 appropriate for age. Pain: Denies pain. EENT: No signs and/or symptoms were reported regarding the EENT system. Neuro: Level of Consciousness is awake, alert, obeys commands, Oriented to person, place, time, situation. Cardiovascular: Capillary refill < 3 seconds Patient's skin is warm and dry. Respiratory: Airway is patent Respiratory effort is even, unlabored. GI: Abdomen is flat, non-distended. : Reports vaginal bleeding that is moderate flow, Denies vaginal bleeding. Derm: No signs and/or symptoms reported regarding the dermatologic system. Musculoskeletal: No signs and/or symptoms reported regarding the musculoskeletal system. Historical: - PMHx: 07:48 Hypertensive disorder; ll1 - PSHx: 07:48 breast augmentation; Cholecystectomy; Total abdominal hysterectomy; Tummy tuck; ll1 - Immunization history:: Adult Immunizations up to date. - Social history:: Smoking status: Patient denies any tobacco usage or history of. Patient/guardian denies using alcohol. Screenin:53 [facility] ED Fall Risk Assessment (Adult) History of falling in the last 3 months, ld1 including since admission No falls in past 3 months (0 pts). Abuse screen: Denies threats or abuse. Denies injuries from another. Nutritional screening: No deficits noted. Tuberculosis screening: No symptoms or risk factors identified. Assessment: 07:54 Reassessment: See triage assessment. ld1 09:15 General: Appears in no apparent distress. comfortable, Behavior is calm, cooperative, ld1 appropriate for age. Pain: Denies pain. Neuro: Level of Consciousness is awake, alert, obeys commands, Oriented to person, place, time, situation. Cardiovascular: Capillary refill < 3 seconds Patient's skin is warm and dry. Rhythm is sinus rhythm. Respiratory: Airway is patent Respiratory effort is even, unlabored. GI: Abdomen is flat, non-distended. : Reports vaginal bleeding that is. Vital Signs: 07:52 BP 143 / 107; Pulse 91; Resp 18; Temp 98.1(TE); Pulse Ox 100% on R/A; Weight 70.31 kg; ld1 Height 5 ft. 4 in. ; Pain 0/10; 09:15 BP 138 / 90; Pulse 86; Resp 18; Pulse Ox 100% on R/A; ld1 07:52 Body Mass Index 26.61 (70.31 kg, 162.56 cm) ld1 07:52 Pain Scale: Adult ld1 ED Course: 07:42 Patient arrived in ED. rg4 07:45 Willian Simons DO is Attending Physician. ms3 07:48 Arm band placed on Patient placed in an exam room, on a stretcher. ll1 07:53 Triage completed. ld1 07:54 Patient has correct armband on for positive identification. Placed in gown. Bed in low ld1 position. Call light in reach. Side rails up X2. monitor tech on. Pulse ox on. NIBP on. Door closed. Noise minimized. Warm blanket given. 07:54 No provider procedures requiring assistance completed. ld1 08:49 Sofiya Simons RN is Primary Nurse. ld1 09:48 Bobbi Funk MD is Referral Physician. ms3 10:09 Patient did not have IV access during this emergency room visit. ph Administered Medications: 08:52 Drug: HYDROcodone-acetaminophen PO 5 mg-325 mg 1 tabs PO once Route: PO; ld1 10:03 Follow up: Response: No adverse reaction ph 10:03 Drug: Doxycycline PO 100 mg PO once Route: PO; ph 10:03 Follow up: Response: No adverse reaction; Medication administered at discharge. ph Medication: 07:54 VIS not applicable for this client. ld1 Outcome: 09:49 Discharge ordered by . ms3 10:03 Discharged to home ambulatory, ph 10:03 Condition: good 10:03 Discharge instructions given to patient, Instructed on discharge instructions, follow up and referral plans. medication usage, Demonstrated understanding of instructions, follow-up care, medications, Prescriptions given X 1, 10:09 Patient left the ED. ph Signatures: Anamika Borrego, RN RN ph Ally Echeverria rg4 Gregorio Carter RN RN ll1 Willian Simons DO DO ms3 Sofiya Simons RN RN ld1
--- NOTE | 2023-09-04 09:50 | EDPHYS ---
Physician Documentation [facility] Name: Gilma Vaughn Age: 53 yrs Sex: Female : 1970 Arrival Date: 09/04/2023 Time: 07:40 Bed 7 Private MD: ED Physician Willian Simons HPI: 09/04 08:08 This 53 yrs old Black Female presents to ER via Ambulatory with complaints of Vaginal ms3 Bleeding, Vaginal Swelling. 08:08 53-year-old female with past medical history of hypertension presents to the emergency ms3 department for labia swelling and vaginal bleeding that began 2 hours prior to arrival. Patient states her discomfort is a 2/10. Patient denies any alleviating or inciting factors. Historical: - PMHx: 07:48 Hypertensive disorder; ll1 - PSHx: 07:48 breast augmentation; Cholecystectomy; Total abdominal hysterectomy; Tummy tuck; ll1 - Immunization history:: Adult Immunizations up to date. - Social history:: Smoking status: Patient denies any tobacco usage or history of. Patient/guardian denies using alcohol. ROS: 08:08 Constitutional: Negative for fever, and chills. ENT: Negative for injury, pain, and ms3 discharge, Neck: Negative for injury, pain, and swelling, Cardiovascular: Negative for chest pain, and palpitations. 08:08 Skin: Negative for injury, rash, and discoloration, 08:08 : Positive for vaginal bleeding, Exam: 08:08 Constitutional: This is a well developed, well nourished patient who is awake, alert, ms3 and in no acute distress. Head/Face: Normocephalic, atraumatic. Neck: Trachea midline, no cervical lymphadenopathy. Supple, full range of motion without nuchal rigidity, or vertebral point tenderness. No Meningismus. Chest/axilla: Normal chest wall appearance and motion. Nontender with no deformity. Cardiovascular: Regular rate and rhythm with a normal S1 and S2. No gallops, murmurs, or rubs. Normal PMI, no JVD. No pulse deficits. Respiratory: Lungs have equal breath sounds bilaterally, clear to auscultation and percussion. No rales, rhonchi or wheezes noted. No increased work of breathing, no retractions or nasal flaring. Abdomen/GI: Soft, non-tender, with normal bowel sounds. No distension or tympany. No guarding or rebound. No evidence of tenderness throughout. Skin: Warm, dry with normal turgor. Normal color with no rashes, no lesions, and no evidence of cellulitis. MS/ Extremity: Pulses equal, no cyanosis. Neurovascular intact. Full, normal range of motion. 09:50 : Pelvic Exam: External exam: Left labia enlarged and tender to palpation. No ms3 induration or fluctuance, Vital Signs: 07:52 BP 143 / 107; Pulse 91; Resp 18; Temp 98.1(TE); Pulse Ox 100% on R/A; Weight 70.31 kg; ld1 Height 5 ft. 4 in. ; Pain 0/10; 09:15 BP 138 / 90; Pulse 86; Resp 18; Pulse Ox 100% on R/A; ld1 07:52 Body Mass Index 26.61 (70.31 kg, 162.56 cm) ld1 07:52 Pain Scale: Adult ld1 MDM: 08:08 Patient medically screened. ms3 08:08 Differential diagnosis: malignancy, postcoital bleeding. ms3 09:50 Data reviewed: vital signs, nurses notes, lab test result(s), and as a result, I will ms3 discharge patient. Counseling: I had a detailed discussion with the patient and/or guardian regarding the historical points, exam findings, and any diagnostic results supporting the discharge/admit diagnosis, lab results, the need for outpatient follow up, to return to the emergency department if symptoms worsen or persist or if there are any questions or concerns that arise at home. ED course: Discussed urinalysis results and physical exam with patient. Patient to follow-up with gynecology in 2 to 3 days. Patient understands agrees with plan. All questions were answered. Return precautions discussed include worsening symptoms, or any other concerns. Patient given prescription for doxycycline. On reevaluation patient is alert and orient x 4, no apparent distress, nontoxic-appearing, ambulatory emerged primary, speaking full sentences. 09/04 08:28 Order name: Urinalysis w/ reflexes; Complete Time: 09:45 ms3 09/04 09:39 Order name: Urine Culture EDMS Administered Medications: 08:52 Drug: HYDROcodone-acetaminophen PO 5 mg-325 mg 1 tabs PO once Route: PO; ld1 10:03 Follow up: Response: No adverse reaction ph 10:03 Drug: Doxycycline PO 100 mg PO once Route: PO; ph 10:03 Follow up: Response: No adverse reaction; Medication administered at discharge. ph Disposition Summary: 09/04/23 09:49 Discharge Ordered Notes: Location: Home ms3 Condition: Stable ms3 Diagnosis - Labial Cellulitis ms3 Followup: ms3 - With: Bobbi Funk MD - When: 2 - 3 days - Reason: Recheck today's complaints Discharge Instructions: - Discharge Summary Sheet ms3 - Cellulitis, Adult ms3 Forms: - Medication Reconciliation Form ms3 - Thank You Letter ms3 - Antibiotic Education ms3 - Prescription Opioid Use ms3 - Patient Portal Instructions ms3 - Leadership Thank You Letter ms3 Prescriptions: - Doxycycline Hyclate 100 mg Oral Tablet - take 1 tablet ORAL route every 12 hours; 20 tablet; Refills: 0, Product ms3 Selection Permitted Signatures: Dispatcher [employer] Anamika Varma RN RN ph Lewis, Lynsay, RN RN 1 Willian Simons DO DO ms3 Sofiya Simons RN RN ld1
[2023-09-04 10:24] VITALS: BP 138/90; TEMP 98.1; O2SAT 100
== END ==
LOC: ER 07:40
DX: N76.2 Acute vulvitis (principal)
CPT/HCPCS: 81001; 87086; 87088

== ENCOUNTER 2025-05-09 07:25 | Emergency (ER) | payer OTHER ==
--- NOTE | 2025-05-09 07:47 | ER ---
Nurse's Notes [facility] Name: Gilma Vaughn Age: 55 yrs Sex: Female : 1970 Arrival Date: 05/09/2025 Time: 07:25 Bed 6 Private MD: Diagnosis: Zoster without complications;Rash and other nonspecific skin eruption Presentation: 05/09 07:39 Chief complaint: Patient states: burning, itchy rash around R eye that began 2 days ss ago. Coronavirus screen: Client denies travel out of the [place] in the last 14 days. Ebola Screen: Patient denies exposure to infectious person. Patient denies travel to an Ebola-affected area in the 21 days before illness onset. Initial Sepsis Screen: Does the patient meet any 2 criteria? No. Patient's initial sepsis screen is negative. Does the patient have a suspected source of infection? No. Patient's initial sepsis screen is negative. Risk Assessment: Do you want to hurt yourself or someone else? Patient reports no desire to harm self or others. Onset of symptoms. 07:39 Method Of Arrival: Ambulatory ss 07:39 Acuity: HOWARD 4 ss Historical: - Allergies: 07:41 No Known Allergies; ss - PMHx: 07:41 Hypertensive disorder; ss - PSHx: 07:41 breast augmentation; Cholecystectomy; Total abdominal hysterectomy; Tummy tuck; ss - Immunization history:: Adult Immunizations unknown. - Infectious Disease History:: Denies. - Social history:: Smoking status: Patient denies any tobacco usage or history of. - Family history:: not pertinent. - Hospitalizations: : No recent hospitalization is reported. Screenin:35 [facility] ED Fall Risk Assessment (Adult) History of falling in the last 3 months, cc6 including since admission No falls in past 3 months (0 pts) Confusion or Disorientation No (0 pts) Intoxicated or Sedated No (0 pts) Impaired Gait No (0 pts) Mobility Assist Device Used No (0 pt) Altered Elimination No (0 pt) Score/Fall Risk Level 0 - 2 = Low Risk Oriented to surroundings, Maintained a safe environment, Provided non-skid footwear, Hourly rounding (assess needs \T\ fall precautionary measures) done. Abuse screen: Denies threats or abuse. Denies injuries from another. Nutritional screening: No deficits noted. Tuberculosis screening: No symptoms or risk factors identified. Assessment: 07:35 General: Appears in no apparent distress. comfortable, Behavior is calm, cooperative, cc6 appropriate for age. Pain: Complains of pain in right eye Pain does not radiate. Pain currently is 3 out of 10 on a pain scale. Quality of pain is described as burning. Neuro: Level of Consciousness is awake, alert, obeys commands, Oriented to person, place, time, situation. Cardiovascular: Capillary refill < 3 seconds Patient's skin is warm and dry. Respiratory: Airway is patent Respiratory effort is even, unlabored, Respiratory pattern is regular, symmetrical. GI: No signs and/or symptoms were reported involving the gastrointestinal system. : No signs and/or symptoms were reported regarding the genitourinary system. EENT: No signs and/or symptoms were reported regarding the EENT system. Derm: No signs and/or symptoms reported regarding the dermatologic system. Musculoskeletal: No signs and/or symptoms reported regarding the musculoskeletal system. Vital Signs: 07:39 BP 152 / 87; Pulse 74; Resp 16; Temp 97.9(O); Pulse Ox 100% on R/A; Weight 67.59 kg; ss Height 5 ft. 4 in. ; Pain 8/10; 07:39 Body Mass Index 25.58 (67.59 kg, 162.56 cm) ss 07:39 Pain Scale: Adult ss ED Course: 07:30 Patient arrived in ED. ts1 07:31 Patrick Rosenberg MD is Attending Physician. rn 07:41 Triage completed. ss 07:41 Arm band placed on right wrist. ss 07:43 Patient has correct armband on for positive identification. Bed in low position. Call cc6 light in reach. 07:43 Provided Education on: use of call light. cc6 07:56 Fidelina Abad RN is Primary Nurse. cc6 08:01 No provider procedures requiring assistance completed. Patient did not have IV access cc6 during this emergency room visit. Administered Medications: No medications were administered Medication: 08:01 VIS not applicable for this client. cc6 Outcome: 07:46 Discharge ordered by . rn 08:01 Discharged to home ambulatory, cc6 08:01 Condition: stable 08:01 Discharge instructions given to patient, Instructed on discharge instructions, follow up and referral plans. medication usage, Demonstrated understanding of instructions, follow-up care, medications, Prescriptions given X 4, 08:01 Patient left the ED. cc6 Signatures: Patrick Rosenberg MD MD rn Blanchard, Shelby, RN RN ss Simpson, Tanya, PAS PAS ts1 Fidelina Abad RN RN cc6 Corrections: (The following items were deleted from the chart) 07:59 07:35 General: Appears in no apparent distress. comfortable, Behavior is calm, cc6 cooperative, appropriate for age, cc6 07:59 07:35 Pain: Complains of pain in right eye Pain does not radiate. Pain currently is 3 cc6 out of 10 on a pain scale. Quality of pain is described as burning, cc6
--- NOTE | 2025-05-09 07:47 | EDPHYS ---
Physician Documentation [facility] Name: Gilma Vaughn Age: 55 yrs Sex: Female : 1970 Arrival Date: 05/09/2025 Time: 07:25 Bed 6 Private MD: ED Physician Patrick Rosenberg HPI: 05/09 07:41 This 55 yrs old Black Female presents to ER via Ambulatory with complaints of rash. rn 07:41 Patient reports right forehead/brow rash that began 2 days ago. Started with pain and rn irritation and then lesions popped up. Denies pain or discomfort of the eyeball itself, only the right brow. No trauma. No blurred vision or watery eye. No headache.. Historical: - Allergies: 07:41 No Known Allergies; ss - PMHx: 07:41 Hypertensive disorder; ss - PSHx: 07:41 breast augmentation; Cholecystectomy; Total abdominal hysterectomy; Tummy tuck; ss - Immunization history:: Adult Immunizations unknown. - Infectious Disease History:: Denies. - Social history:: Smoking status: Patient denies any tobacco usage or history of. - Family history:: not pertinent. - Hospitalizations: : No recent hospitalization is reported. ROS: 07:41 Constitutional: Negative for fever, chills, and weight loss, Eyes: Negative for injury, rn pain, redness, and discharge, Skin: Positive for right forehead facial rash Neuro: Negative for headache, weakness, numbness, tingling, and seizure, Exam: 07:41 Constitutional: This is a well developed, well nourished patient who is awake, alert, rn and in no acute distress. Head/Face: Right brow and nasal bridge with grouped lesions, no drainage, no bullae, no desquamation. Isolated on right side of face in V1 distribution. Does not involve the eye itself. Eyes: Pupils equal round and reactive to light, extra-ocular motions intact. Lids and lashes normal. Conjunctiva and sclera are non-icteric and not injected. Cornea within normal limits. Neuro: Awake and alert, GCS 15, oriented to person, place, time, and situation. Cranial nerves II-XII grossly intact. Motor strength 5/5 in all extremities. Sensory grossly intact. Cerebellar exam normal. Normal gait. Vital Signs: 07:39 BP 152 / 87; Pulse 74; Resp 16; Temp 97.9(O); Pulse Ox 100% on R/A; Weight 67.59 kg; ss Height 5 ft. 4 in. ; Pain 8/10; 07:39 Body Mass Index 25.58 (67.59 kg, 162.56 cm) ss 07:39 Pain Scale: Adult ss MDM: 07:31 Medical Screening Exam initiated rn 07:41 Differential diagnosis: Bacterial infection, zoster. Data reviewed: vital signs, nurses rn notes, and as a result, I will discharge patient. Counseling: I had a detailed discussion with the patient and/or guardian regarding the historical points, exam findings, and any diagnostic results supporting the discharge/admit diagnosis, the need for outpatient follow up, to return to the emergency department if symptoms worsen or persist or if there are any questions or concerns that arise at home. Special discussion: I discussed with the patient/guardian in detail that at this point there is no indication for admission to the hospital. It is understood, however, that if the symptoms persist or worsen the patient needs to return immediately for re-evaluation. Based on the history and exam findings, there is no indication for further emergent testing or inpatient evaluation. I discussed with the patient/guardian the need to see the opthamologist for further evaluation of the symptoms, I discussed with the patient/guardian the need to see the primary care provider for further evaluation of the symptoms. Administered Medications: No medications were administered Disposition Summary: 05/09/25 07:46 Discharge Ordered Notes: Location: Home rn Problem: new rn Symptoms: have improved rn Condition: Stable rn Diagnosis - Zoster without complications rn - Rash and other nonspecific skin eruption rn Followup: rn - With: Private Physician - When: As needed - Reason: Recheck today's complaints, Re-evaluation by your physician Discharge Instructions: - Discharge Summary Sheet rn - Rash, Adult rn - Shingles rn Forms: - Medication Reconciliation Form rn - Antibiotic events intern - Prescription Opioid Use rn - Patient Portal Instructions rn - Leadership Thank You Letter rn Prescriptions: - gabapentin 100 mg Oral capsule - take 1 capsule ORAL route 2 times per day As needed; 14 capsule; Refills: 0, rn Product Selection Permitted - Clindamycin HCl 300 mg Oral Capsule - take 1 capsule ORAL route every 6 hours for 10 days; 40 capsule; Refills: 0, rn Product Selection Permitted - Acyclovir 800 mg Oral Tablet - take 1 tablet ORAL route 5 times per day for 10 days; 50 tablet; Refills: 0, rn Product Selection Permitted - Medrol (Kvng) 4 mg Oral Tablets, Dose Pack - take 1 tablet ORAL route as directed - follow package instructions; 1 packet; rn Refills: 0, Product Selection Permitted Signatures: Patrick Rosenberg MD MD rn Blanchard, Shelby, RN RN ss Fidelina Abad RN RN cc6 Corrections: (The following items were deleted from the chart) 07:45 07:41 Constitutional: This is a well developed, well nourished patient who is awake, rn alert, and in no acute distress. Head/Face: Right brow and nasal bridge with grouped lesions, no drainage, no bullae, no desquamation. Isolated on right side of face in V1 distribution. Does not involve the eye itself. Eyes: Pupils equal round and reactive to light, extra-ocular motions intact. Lids and lashes normal. Conjunctiva and sclera are non-icteric and not injected. Cornea within normal limits. rn
[2025-05-09 12:19] VITALS: BP 152/87; TEMP 97.9; O2SAT 100
== END 2025-05-09 08:01 | disposition home or self-care (01) ==
LOC: ER 07:25
DX: B02.9 Zoster without complications (principal)
CPT/HCPCS: 99283